=== PATIENT | female | born 1970 | race Caucasian/White ===

== ENCOUNTER 2016-11-12 12:44 | Emergency (ER) | payer OTHER ==
[~2016-11-12] VITALS: Ht 160 cm; Wt 102.5 kg
[~2016-11-12 12:44] MED LIST: CLONAZEPAM0.5 MG PO; DUEXIS 800-26.1 EACH PO; ZOLPIDEM TARTRAT5 MG PO
[2016-11-12] MEDS ORDERED: ULTRAM50 MG PO (14:21)
[2016-11-12 14:43] VITALS: BP 1145/89
== END 2016-11-12 14:46 | disposition home or self-care (01) ==
LOC: EME 12:44
DX: S43.402A Unspecified sprain of left shoulder joint, initial encounter (principal); X50.1XXA Overexertion from prolonged static or awkward postures, initial encounter; Y93.84 Activity, sleeping
CPT/HCPCS: 73030; 99281; 99283

== ENCOUNTER 2017-05-25 13:05 | Emergency (ER) | payer OTHER ==
[~2017-05-25] VITALS: Ht 160 cm; Wt 84.9 kg
[~2017-05-25 13:05] MED LIST changes: +ULTRAM50 MG PO
[2017-05-25 13:54] LABS: HEMATOCRIT 41.1 % (36.0-46.0); MCH 30.2 PG (29.0-34.0); MCHC 34.1 G/DL (30.0-36.0); MCV 88.8 FL (83-99); PLATELET COUNT 278 K/uL (156-360); RBC DIS.WIDTH-CV 14.2 % (11.8-14.6); RBC DIS.WIDTH-SD 45.6 % (39-53); RED BLOOD COUNT 4.63 M/uL (3.80-5.20); WHITE BLOOD COUNT 9.8 K/uL (4.1-10.2)
[2017-05-25 14:03] LABS: CHLORIDE 103 mEq/L (99-109); POTASSIUM 3.9 mEq/L (3.7-5.4); SODIUM 140 mEq/L (136-147)
[2017-05-25 14:04] LABS: GLUCOSE 98 mg/dL (70-99)
[2017-05-25 14:08] LABS: CREATININE 1.1 mg/dL (0.6-1.3); GFR ESTIMATE (CALCULATED) 57 mL/min/
[2017-05-25 14:09] LABS: UREA NITROGEN (BUN) 15 mg/dL (9-23)
[2017-05-25 14:16] LABS: TROP-I INTERPRETATION NEGATIVE; TROPONIN-I < 0.01 ng/mL (0.0-0.30)
[2017-05-25 16:17] LABS: ALBUMIN 4.2 g/dL (3.2-4.8)
[2017-05-25 16:20] LABS: TOTAL PROTEIN 8.8 g/dL (6.4-8.3)
[2017-05-25 16:22] LABS: TOTAL BILIRUBIN 0.7 mg/dL (0.0-1.0)
[2017-05-25 16:23] LABS: ALKALINE PHOSPHATASE 77 IU/L (3-129)
[2017-05-25 16:31] LABS: ALT (GPT) 16 IU/L (3-49); AST (GOT) 19 IU/L (2-34); DIRECT BILIRUBIN 0.3 mg/dL (0.0-0.3); LIPASE 23 U/L (1.0-51.0)
[2017-05-25 16:32] LABS: QUANTITATIVE HCG < 4.0 MIU/ML
[2017-05-25 16:40] LABS: TROP-I INTERPRETATION NEGATIVE; TROPONIN-I < 0.01 ng/mL (0.0-0.30)
[2017-05-25 17:05] LABS: VALPROIC ACID (DEPAKOTE) 75.7 MCG/ML (50-100)
[2017-05-25 18:49] VITALS: BP 155/97
== END 2017-05-25 18:50 | disposition home or self-care (01) ==
LOC: EME 13:05
PROVIDERS: Nurse Practitioner Family
DX: R00.2 Palpitations (principal); R03.0 Elevated blood-pressure reading, without diagnosis of hypertension; R10.13 Epigastric pain; F31.9 Bipolar disorder, unspecified; F41.9 Anxiety disorder, unspecified
CPT/HCPCS: 71046; 76705; 80048; 80076; 80164; 83690; 84484; 84702; 85027; 93005; 99281; 99284

== ENCOUNTER 2017-05-25 20:49 | Emergency (ER) | payer OTHER ==
[~2017-05-25] VITALS: Ht 160 cm; Wt 90.5 kg
[2017-05-26 00:26] LABS: HEMATOCRIT 37.5 % (36.0-46.0); HEMOGLOBIN 12.8 G/DL (11.9-15.5); MCH 30.5 PG (29.0-34.0); MCHC 34.1 G/DL (30.0-36.0); MCV 89.3 FL (83-99); PLATELET COUNT 240 K/uL (156-360); RBC DIS.WIDTH-CV 14.3 % (11.8-14.6); WHITE BLOOD COUNT 10.3 K/uL (4.1-10.2)
[2017-05-26 00:40] LABS: ALBUMIN 3.8 g/dL (3.2-4.8); CHLORIDE 103 mEq/L (99-109); POTASSIUM 3.8 mEq/L (3.7-5.4)
[2017-05-26 00:41] LABS: SODIUM 139 mEq/L (136-147)
[2017-05-26 00:43] LABS: GLUCOSE 91 mg/dL (70-99); TOTAL PROTEIN 7.9 g/dL (6.4-8.3)
[2017-05-26 00:45] LABS: TOTAL BILIRUBIN 0.7 mg/dL (0.0-1.0)
[2017-05-26 00:46] LABS: ALKALINE PHOSPHATASE 69 IU/L (3-129); GFR ESTIMATE (CALCULATED) > 59 mL/min/
[2017-05-26 00:48] LABS: AST (GOT) 14 IU/L (2-34); UREA NITROGEN (BUN) 16 mg/dL (9-23)
[2017-05-26 00:49] LABS: ALT (GPT) 15 IU/L (3-49)
[2017-05-26 00:50] LABS: LIPASE 15 U/L (1.0-51.0)
[2017-05-26 00:55] LABS: TROP-I INTERPRETATION NEGATIVE; TROPONIN-I < 0.01 ng/mL (0.0-0.30)
[2017-05-26 02:00] VITALS: BP 154/95
== END 2017-05-26 02:07 | disposition home or self-care (01) ==
LOC: EME 20:49
PROVIDERS: Emergency Medicine
DX: R00.2 Palpitations (principal); I10 Essential (primary) hypertension
CPT/HCPCS: 80053; 83690; 84484; 85027; 93005; 99281; 99284